=== PATIENT | female | born 1925 | race Caucasian/White ===

== ENCOUNTER 2016-08-28 16:53 | Observation (INO) | payer OTHER, BC ==
[~2016-08-28] VITALS: Ht 160 cm; Wt 66.7 kg
[~2016-08-28 16:53] MED LIST: ALPRAZOLAM0.25 M2 PO; ALTACE5 MG PO; AMBIEN5 MG PO; ANTIVERT12.5 MG PO; ASPIRIN325 MG PO; Altace PO; Antivert PO; COLACE100 MG PO; COUMADIN,JANTOVE2 MG PO; DIGOXIN125 MCG PO; DOCUSATE SODIU100 MG PO; Ecotrin PO; FUROSEMIDE20 MG PO; GAS-X80 MG PO; HYDROCODON-ACE1 EAC7 PO; IMDUR30 MG PO; Imdur PO; KEFLEX500 MG PO; KLOR-CON 1010 ME1 PO; LANOXIN,DIGI0.125 MG PO; LIPITOR10 MG PO; LITE COAT ASPI325 M1 PO; LOPRESSOR25 MG PO; Lanoxin,Digitek PO; Lasix PO; Lopressor PO; MECLIZINE HCL12.5 M1 PO; METAMUCIL PACKE1 PKT PO; METOPROLOL TART25 MG PO; METOPROLOL TART50 MG PO; MIRALAX17 GM PO; Micro-K,K-Tab,K-Dur, PO; NORVASC5 MG PO; Norvasc PO; PEPCID20 MG PO; PROTONIX40 MG PO; RAMIPRIL5 MG PO; SIMETHICONE125 M1 PO; TYLENOL WITH C1 EACH PO; ULTRAM50 MG PO; XANAX0.125 MG PO; XANAX0.25 MG PO; Xanax PO; ZOFRAN4 MG PO
[2016-08-28 17:50] LABS: HEMATOCRIT 37.3 % (36.0-46.0); MCH 32.4 PG (29.0-34.0); MCHC 32.4 G/DL (30.0-36.0); MCV 99.7 FL (83-99); MEAN PLAT.VOLUME 9.6 uM^3 (9.5-12.4); PLATELET COUNT 197 K/uL (156-360); RBC DIS.WIDTH-CV 13.4 % (11.8-14.6); RBC DIS.WIDTH-SD 49.1 % (39-53); RED BLOOD COUNT 3.74 M/uL (3.80-5.20); WHITE BLOOD COUNT 5.5 K/uL (4.1-10.2)
[2016-08-28 18:01] LABS: CHLORIDE 99 mEq/L (99-109); POTASSIUM 4.3 mEq/L (3.7-5.4); SODIUM 137 mEq/L (136-147)
[2016-08-28 18:03] LABS: GLUCOSE 104 mg/dL (70-99)
[2016-08-28 18:04] LABS: ANION GAP 8 MEQ/L (2-14)
[2016-08-28 18:06] LABS: GFR ESTIMATE (CALCULATED) 55 mL/min/
[2016-08-28 18:08] LABS: UREA NITROGEN (BUN) 18 mg/dL (9-23)
[2016-08-28 18:11] LABS: TROP-I INTERPRETATION NEGATIVE; TROPONIN-I < 0.01 ng/mL (0.0-0.30)
[2016-08-28] MEDS ORDERED: VITAMIN D-3 401 EACH PO (19:17)
[2016-08-28 20:46] VITALS: BP 196/81
[2016-08-28 23:19] LABS: TROP-I INTERPRETATION NEGATIVE; TROPONIN-I 0.01 ng/mL (0.0-0.30)
[2016-08-29 04:00] VITALS: BP 144/69
[2016-08-29 06:25] LABS: HEMATOCRIT 33.6 % (36.0-46.0); MCH 31.8 PG (29.0-34.0); MCHC 32.4 G/DL (30.0-36.0); MEAN PLAT.VOLUME 9.9 uM^3 (9.5-12.4); PLATELET COUNT 172 K/uL (156-360); RBC DIS.WIDTH-CV 13.4 % (11.8-14.6); RBC DIS.WIDTH-SD 48.8 % (39-53); RED BLOOD COUNT 3.43 M/uL (3.80-5.20); WHITE BLOOD COUNT 4.6 K/uL (4.1-10.2)
[2016-08-29 06:45] LABS: TROP-I INTERPRETATION NEGATIVE; TROPONIN-I 0.01 ng/mL (0.0-0.30)
[2016-08-29 07:15] LABS: ALKALINE PHOSPHATASE 63 IU/L (3-129); ANION GAP 8 MEQ/L (2-14); CHLORIDE 99 MEQ/L (99-109); GFR ESTIMATE (CALCULATED) 55 mL/min/; GLUCOSE 81 mg/dL (70-99); POTASSIUM 3.8 MEQ/L (3.7-5.4); SAMPLE HEMOLYSIS CHECK 0; SAMPLE ICTERIC CHECK 0; SAMPLE LIPEMIA CHECK 0; SODIUM 136 MEQ/L (136-147); UREA NITROGEN (BUN) 15 mg/dL (9-23)
[2016-08-29 07:17] VITALS: BP 140/66
[2016-08-29 10:07] LABS: TROP-I INTERPRETATION NEGATIVE; TROPONIN-I < 0.01 ng/mL (0.0-0.30)
== END 2016-08-29 12:29 | disposition home or self-care (01) ==
LOC: EME 16:53 → 5WEST 20:10 → EDOF 20:10 → 5WEST 20:46
PROVIDERS: Emergency Medicine; Internal Medicine; Nurse Practitioner Family
DX: R07.89 Other chest pain (principal); R42 Dizziness and giddiness; I25.5 Ischemic cardiomyopathy; I48.0 Paroxysmal atrial fibrillation; I11.9 Hypertensive heart disease without heart failure; I25.10 Atherosclerotic heart disease of native coronary artery without angina pectoris; E78.5 Hyperlipidemia, unspecified; K21.9 Gastro-esophageal reflux disease without esophagitis; K44.9 Diaphragmatic hernia without obstruction or gangrene; Z95.1 Presence of aortocoronary bypass graft; Z95.0 Presence of cardiac pacemaker; E66.9 Obesity, unspecified; Z86.718 Personal history of other venous thrombosis and embolism; F41.9 Anxiety disorder, unspecified; F32.9 Major depressive disorder, single episode, unspecified
CPT/HCPCS: 71020; 80048; 80053; 84484; 85027; 93005; 99281; 99285; G0378; J1644

== ENCOUNTER 2017-02-25 10:45 | Emergency (ER) | payer OTHER, BC ==
[~2017-02-25] VITALS: Ht 160 cm; Wt 67.1 kg
[~2017-02-25 10:45] MED LIST changes: +VITAMIN D-3 401 EACH PO
[2017-02-25 14:01] LABS: HEMATOCRIT 36.5 % (36.0-46.0); MCH 32.5 PG (29.0-34.0); MCV 95.5 FL (83-99); MEAN PLAT.VOLUME 9.3 uM^3 (9.5-12.4); PLATELET COUNT 179 K/uL (156-360); RBC DIS.WIDTH-CV 12.2 % (11.8-14.6); RED BLOOD COUNT 3.82 M/uL (3.80-5.20); WHITE BLOOD COUNT 5.3 K/uL (4.1-10.2)
[2017-02-25 14:11] LABS: CHLORIDE 91 mEq/L (99-109)
[2017-02-25 14:12] LABS: POTASSIUM 4.5 mEq/L (3.7-5.4); SODIUM 129 mEq/L (136-147)
[2017-02-25 14:14] LABS: GLUCOSE 95 mg/dL (70-99)
[2017-02-25 14:15] LABS: ANION GAP 10 MEQ/L (2-14)
[2017-02-25 14:16] LABS: TOTAL BILIRUBIN 1.2 mg/dL (0.0-1.0)
[2017-02-25 14:17] LABS: ALKALINE PHOSPHATASE 75 IU/L (3-129); GFR ESTIMATE (CALCULATED) > 59 mL/min/
[2017-02-25 14:19] LABS: UREA NITROGEN (BUN) 14 mg/dL (9-23)
[2017-02-25 14:20] LABS: CREATINE KINASE 64 IU/L (1-294)
[2017-02-25 15:30] LABS: ADD MIUA? NO; BILIRUBIN NEGATIVE; BLOOD NEGATIVE; COLOR YELLOW ((YELLOW)); GLUCOSE (STRIP) NEGATIVE; KETONES NEGATIVE; LEUKOCYTES NEGATIVE; NITRITE NEGATIVE; PROTEIN (STRIP) NEGATIVE; SPECIFIC GRAVITY 1.006 (1.000-1.030); UCUL ADDED? NO; UROBILINOGEN 0.2 MG/DL (0.2-1.0)
[2017-02-25 16:51] VITALS: BP 162/83
== END 2017-02-25 16:52 | disposition home or self-care (01) ==
LOC: EME 10:45
PROVIDERS: Emergency Medicine
DX: R20.2 Paresthesia of skin (principal); M79.604 Pain in right leg; R20.0 Anesthesia of skin; R42 Dizziness and giddiness; I10 Essential (primary) hypertension; Z95.1 Presence of aortocoronary bypass graft; Z85.42 Personal history of malignant neoplasm of other parts of uterus; Z90.710 Acquired absence of both cervix and uterus; Z79.82 Long term (current) use of aspirin
CPT/HCPCS: 70450; 80053; 81003; 82550; 85027; 93005; 99281; 99284